=== PATIENT | female | born 1990 | race Two or more races ===

== ENCOUNTER 2023-01-14 20:06 | Emergency (ER) | payer SELFPAY ==
[~2023-01-14] VITALS: Ht 167.6 cm; Wt 71.4 kg
[2023-01-14 22:15] VITALS: BP 139/75; PULSE 70; RESP 18; TEMP 98.3
[2023-01-14] MEDS ORDERED: PERTUSS(ACELL),DIPH,TET VAC/PF 0.5 ML SYRINGE IM. ONE (22:45)
[2023-01-14] MEDS ORDERED: AMOX-426 PO (23:04)
== END 2023-01-14 23:20 | disposition home or self-care (01) ==
LOC: EMS 20:09
DX: S71.152A Open bite, left thigh, initial encounter (principal); W54.0XXA Bitten by dog, initial encounter; Y93.89 Activity, other specified; Y92.89 Other specified places as the place of occurrence of the external cause; Y99.8 Other external cause status
CPT/HCPCS: 90471; 90715; 99283